=== PATIENT | male | born 1985 | race Caucasian/White ===

== ENCOUNTER 2020-06-27 17:12 | Emergency (ER) | payer OTHER ==
[2020-06-27 19:53] LABS: BASOPHIL 0.3 % (0-2); EOSINOPHIL 2.9 % (0-5); HCT 43.7 % (42.0-52.0); HGB 15.4 g/dl (13.2-18.0); MCH 32.4 pg (25.0-31.0); MCHC 35.2 g/dL (32.0-36.0); MCV 91.8 fL (78.0-100.0); MONOCYTE 10.1 % (0-12); NEUTROPHIL 66.6 % (41-80); NRBC 0; PLT 209 K/uL (150-400); RBC 4.76 M/uL (4.70-6.00); RDW 12.4 % (11.5-14.0); WBC 6.9 K/uL (4.0-10.5)
[2020-06-27 20:00] LABS: INR 1.04 (0.9-1.2); PROTHROMBIN TIME 12.9 SECONDS (11.4-13.6)
[2020-06-27 20:01] LABS: PTT 28.1 SECONDS (22.2-34.7)
[2020-06-27 20:16] LABS: ALBUMIN 3.8 g/dL (3.4-5.0); BILIRUBIN - TOTAL 0.6 mg/dL (0.2-1.0); BUN/CREAT RATIO (CALC) 13.5 RATIO; C-REACTIVE PROTEIN 0.2 mg/dL (<=0.90); CREATININE 1.04 mg/dL (0.67-1.17); GLOBULIN (CALCULATION) 2.4 g/dL; MAGNESIUM 1.9 mg/dL (1.8-2.4); POTASSIUM 4.1 mmol/L (3.5-5.1); TOTAL PROTEIN 6.2 g/dL (6.4-8.2)
[2020-06-27 20:25] LABS: LACTIC ACID 0.9 mmol/L (0.4-1.9)
[2020-06-27 21:07] LABS: BILIRUBIN 1+ mg/dL (NEGATIVE); BLOOD NEGATIVE Ery/uL (NEGATIVE); CLARITY CLEAR (CLEAR); COLOR YELLOW (YELLOW); GLUCOSE (U) NORMAL (NORMAL); LEUKOCYTES NEGATIVE Leu/uL (NEGATIVE); NITRITE NEGATIVE (NEGATIVE); PROTEIN TRACE (LOW) mg/dL (NEGATIVE); SPECIFIC GRAVITY >=1.030 (1.001-1.030)
[2020-06-27 21:11] LABS: MUCOUS MODERATE; SQUAMOUS EPITHELIAL CELLS RARE; URINARY RBC RARE
[2020-06-27] MEDS ORDERED: PERCOCET 5-3251 EACH PO (23:17)
[2020-06-27] MEDS ORDERED: PROTONIX 40MG T40 MG PO (23:17)
[2020-06-27] MEDS ORDERED: CARAFATE1 GM PO (23:17)
== END 2020-06-27 23:58 | disposition home or self-care (01) ==
LOC: FER 17:12
PROVIDERS: Emergency Medicine
DX: R10.13 Epigastric pain (principal); R11.2 Nausea with vomiting, unspecified; F17.200 Nicotine dependence, unspecified, uncomplicated
CPT/HCPCS: 36415; 71260; 80053; 81001; 83605; 83615; 83690; 83735; 84145; 85025; 85610; 85730; 86140; 93005; C9113; J1170; J1885; J2405; J7120; Q9967